=== PATIENT | female | born 1970 | race Caucasian/White ===

== ENCOUNTER → 2024-03-01 14:21 | Outpatient (REF) | payer BC, SELFPAY | LOC: WDC 14:21 | PROVIDERS: ATTENDING PHYSICIAN Family Medicine | DX: Z12.31 Encounter for screening mammogram for malignant neoplasm of breast (principal) | CPT/HCPCS: 77063; 77067 ==

== ENCOUNTER 2024-03-02 19:55 | Emergency (ER) | payer BC, SELFPAY ==
[2024-03-02 19:57] VITALS: BP 159/96
--- NOTE | 2024-03-02 20:49 | ED.GENMED ---
History of Present Illness
General
Chief Complaint: Skin Problem
Source: patient
Exam Limitations: none
Time Seen by Provider: 03/02/24 20:22
History of Present Illness
History of Present Illness:
53-year-old female presents with sensation of retained foreign body in right foot. Her crockpot lid broke 2 days ago and she stepped on a piece of glass. Every time she puts weight on her foot she feels as though something is in her foot. She
tried to get it out but was unable to. She is a diabetic. No other complaints at this time
Past History
Past History
ED Past Medical History: Other (Thoracic outlet syndrome, anxiety, elevated cholesterol)
ED Past Surgical History: Cholecystectomy
Social History
Tobacco: Non-smoker
Alcohol: None
Drug: None
Personal:
Living: with family
Phy Exam
Physical Exam
Physical Exam:
General: Well-appearing female in no acute respiratory distress
Skin: Small puncture wound noted plantar surface right foot the level of the MTP joint of the first toe no surrounding erythema or swelling. This is tender to palpation
Course
Vital Signs
Initial and Last Documented VS:
Initial Vital Signs
Temp Pulse Resp BP Pulse Ox
98.3 F 91 18 159/96 99
03/02/24 19:57 03/02/24 19:57 03/02/24 19:57 03/02/24 19:57 03/02/24 19:57
Last Documented Vital Signs
Temp Pulse Resp BP Pulse Ox
98.3 F 91 18 159/96 99
03/02/24 19:57 03/02/24 19:57 03/02/24 19:57 03/02/24 19:57 03/02/24 19:57
MDM/Problems Addressed
Differential Diagnosis Includes:
Foreign body sensation right foot. Differential could include foreign body versus localized irritation from previous foreign body. No evidence of a infectious process on exam such as cellulitis or abscess
Discussion was had with patient. Decided to look for retained foreign body. The foot was prepped with Betadine and anesthetized with 1% lidocaine with epinephrine. This was done locally. An incision was made. A small visible and palpable thin
sliver of glass was noticed and removed with forceps. The wound was irrigated and inspected under adequate lighting after the foreign body was removed. There is no further retained foreign bodies
Dressing applied to the foot. Keflex sent to pharmacy. Stable for
*Critical Care Note
Total Time (30-74mins, 75-104mins- exclusive of procedures): Not Applicable
ED Attending Note
-
Portions of this chart may have been created with voice recognition software.� Occasional wrong word or��sound alike� substitutions may have occurred due to the inherent limitations of voice recognition software.
Discharge Plan
Departure
Patient Disposition: Home (Routine Discharge)
Date of Disposition: 03/02/24
Time of Disposition: 20:53
Patient with high blood pressure during this ER visit?: No
Discharge Problem:
Foreign body in foot
Instructions: Foreign Body in Skin ED
Prescriptions:
New
cephalexin 500 mg capsule
500 mg PO TID 7 Days Qty: 21 0RF
No Action
omeprazole 20 MG tablet,delayed release (DR/EC)
40 mg PO DAILY
lorazepam 0.5 MG tablet
0.5 mg PO Q4HPRN PRN (Reason: anxiety)
bupropion HCl 300 MG tablet extended release 24 hr
450 mg PO DAILY
Multivitamin
1 tab PO DAILY
sertraline 100 mg Tablet
100 mg PO DAILY
Referrals:
UNKNOWN - PT DOES,NOT KNOW [Family Provider] -
Activity Restrictions/Additional Instructions:
Keep clean. Please return here for worsening symptoms. Watch for redness swelling and increased pain. Take antibiotics as directed.
Interventions
Interventions:
*Risk Screen - Suicide Last Done: 03/02/24 19:57
*General Assessment Last Done: 03/02/24 19:57
*Neglect/Abuse Screening Last Done: 03/02/24 19:57
Discharge Date and Time
Print Language: BELARUSIAN
== END 2024-03-02 21:13 | disposition home or self-care (01) ==
LOC: EMR 19:55
PROVIDERS: EMERGENCY PHYSICIAN Emergency Medicine
DX: S90.851A Superficial foreign body, right foot, initial encounter (principal); W45.8XXA Other foreign body or object entering through skin, initial encounter; F41.9 Anxiety disorder, unspecified; G54.0 Brachial plexus disorders; E78.00 Pure hypercholesterolemia, unspecified; E11.9 Type 2 diabetes mellitus without complications; Z90.49 Acquired absence of other specified parts of digestive tract; Z88.1 Allergy status to other antibiotic agents
CPT/HCPCS: 99283

== ENCOUNTER 2024-07-09 06:27 | Day surgery (SDC) | payer BC, SELFPAY ==
[2024-07-09 08:05] LABS: Glucose - Point of Care 148 mg/dl (70-99)
== END 2024-07-09 10:28 | disposition home or self-care (01) ==
LOC: GI 06:27
PROVIDERS: ATTENDING PHYSICIAN Internal Medicine Gastroenterology; FAMILY PHYSICIAN Family Medicine
DX: Z12.11 Encounter for screening for malignant neoplasm of colon (principal); D12.2 Benign neoplasm of ascending colon; K63.5 Polyp of colon; R19.7 Diarrhea, unspecified; K31.7 Polyp of stomach and duodenum; R13.14 Dysphagia, pharyngoesophageal phase; R12 Heartburn; Z86.0101 Personal history of adenomatous and serrated colon polyps; Z98.890 Other specified postprocedural states
CPT/HCPCS: 45385; 43239; 88305; 82962

== ENCOUNTER → 2024-08-05 08:53 | Outpatient (REF) | payer BC, SELFPAY | LOC: RAD 08:53 | PROVIDERS: ATTENDING PHYSICIAN Internal Medicine Gastroenterology; FAMILY PHYSICIAN Family Medicine | DX: R13.19 Other dysphagia (principal) | CPT/HCPCS: 74246 ==

== ENCOUNTER → 2024-11-07 06:34 | Outpatient (REF) | payer BC, SELFPAY | LOC: MRI 06:34 | PROVIDERS: ATTENDING PHYSICIAN Family Medicine | DX: M54.12 Radiculopathy, cervical region (principal) | CPT/HCPCS: 72141 ==

== ENCOUNTER → 2024-11-25 12:03 | Outpatient (REF) | payer BC, SELFPAY | LOC: RAD 12:03 | PROVIDERS: ATTENDING PHYSICIAN Neurological Surgery; FAMILY PHYSICIAN Family Medicine | DX: M47.22 Other spondylosis with radiculopathy, cervical region (principal) | CPT/HCPCS: 72052 ==

== ENCOUNTER → 2025-03-03 14:43 | Outpatient (REF) | payer BC, SELFPAY | LOC: WDC 14:43 | PROVIDERS: ATTENDING PHYSICIAN Obstetrics & Gynecology Gynecology; FAMILY PHYSICIAN Family Medicine | DX: Z12.31 Encounter for screening mammogram for malignant neoplasm of breast (principal) | CPT/HCPCS: 77063; 77067 ==

== ENCOUNTER → 2025-03-15 06:38 | Outpatient (REF) | payer BC, SELFPAY | LOC: MRI 3T 06:38 | PROVIDERS: ATTENDING PHYSICIAN Orthopaedic Surgery; FAMILY PHYSICIAN Family Medicine | DX: M75.41 Impingement syndrome of right shoulder (principal) | CPT/HCPCS: 73221 ==